=== PATIENT | female | born 1970 | race Caucasian/White ===

== ENCOUNTER → 2023-06-23 16:57 | Outpatient (REF) | payer SELFPAY | LOC: RAD 16:57 | PROVIDERS: ATTENDING PHYSICIAN Family Medicine | DX: Z78.0 Asymptomatic menopausal state (principal); M81.0 Age-related osteoporosis without current pathological fracture | CPT/HCPCS: 75571 ==

== ENCOUNTER 2023-10-30 13:06 | Outpatient (RCR) | payer BC, SELFPAY | END 2023-10-30 23:59 | disposition home or self-care (01) | LOC: RPT 13:06 | PROVIDERS: ATTENDING PHYSICIAN Nurse Practitioner Family | DX: M79.601 Pain in right arm (principal); Z73.6 Limitation of activities due to disability; M25.511 Pain in right shoulder; R20.2 Paresthesia of skin | CPT/HCPCS: 97110; 97162 ==

== ENCOUNTER 2023-12-04 13:20 | Outpatient (RCR) | payer BC, SELFPAY | END 2023-12-04 23:59 | disposition home or self-care (01) | LOC: RPT 13:20 | PROVIDERS: ATTENDING PHYSICIAN Nurse Practitioner Family | DX: M79.601 Pain in right arm (principal) | CPT/HCPCS: 97110; 97140 ==

== ENCOUNTER 2024-12-14 20:32 | Emergency (ER) | payer BC, SELFPAY ==
[2024-12-14 20:33] VITALS: BP 125/74
[2024-12-14 21:02] LABS: Blood Urea Nitrogen 12 mg/dl (7-17); Calcium 9.7 mg/dl (8.4-10.2); Carbon Dioxide 24 mmol/L (22-30); Chloride 106 mmol/L (98-107); Glucose 104 mg/dl (70-99); Sodium 140 mmol/L (135-145); eGFR > 60.00
[2024-12-14 21:12] LABS: Hematocrit 41.0 % (37.0-47.0); Hemoglobin 13.7 g/dL (12.0-16.0); Mean Corp Hgb Conc. 33.4 g/dL (33.0-37.0); Mean Corpuscular Volume 90.3 fL (81.0-99.0); Nucleated Red Blood Cells % 0 %; Red Cell Dist. Width 12.9 % (11.5-14.5)
[2024-12-14 21:24] VITALS: BMI 26.0
[2024-12-14 21:29] VITALS: BP 108/66
[2024-12-14 22:00] VITALS: BP 104/70
--- NOTE | 2024-12-14 22:24 | ED.GENMED ---
History of Present Illness
General
Chief Complaint: Headache
Time Seen by Provider: 12/14/24 22:10
History of Present Illness
History of Present Illness:
See MDM
Past History
Past History
ED Past Medical History: None
ED Past Surgical History: None
Social History
Tobacco: Non-smoker
Alcohol: None
Drug: None
Living: with family
Employment: Employed
Phy Exam
Physical Exam
Physical Exam:
See MDM
Course
Orders/Labs/Results
Orders:
Orders
12/14/24 20:41
Basic Metabolic Panel Urgent
Complete Blood Count/With Diff Urgent
12/14/24 22:24
Butalb/Acetaminophen/Caffeine [Fioricet] 1 tab PO NOW STA
Abnormal Lab Results
12/14/24
20:41
Absolute Neuts (auto) 7.0 H 10^3/uL
(1.4-6.5)
Absolute Monos (auto) 0.7 H 10^3/uL
(0.1-0.6)
Lymphocytes % 16.6 L %
(20.5-51.1)
Glucose 104 H mg/dl
(70-99)
12/14/24 20:41
12/14/24 20:41
Vital Signs
Initial and Last Documented VS:
Initial Vital Signs
Temp Pulse Resp BP Pulse Ox
97.6 F 107 16 125/74 97
12/14/24 20:33 12/14/24 20:33 12/14/24 20:33 12/14/24 20:33 12/14/24 20:33
Last Documented Vital Signs
Temp Pulse Resp BP Pulse Ox
97.6 F 78 18 104/70 98
12/14/24 20:33 12/14/24 22:00 12/14/24 22:00 12/14/24 22:00 12/14/24 22:26
MDM/Problems Addressed
Differential Diagnosis Includes:
Note:
CHIEF COMPLAINT(S)
Headache
HISTORY OF PRESENT ILLNESS
The patient is a 54-year-old female who presented with a chief complaint of a headache. She reports that sometimes she experiences migraine-like headaches, which can be localized on either the left or right side of the head. She describes the pain
as severe and mentions that her worst headache occurred on Friday, lasting into the evening. The patient states that nothing seems to significantly relieve the pain. She has been taking acetaminophen at a dose of 500 mg.
The patient expressed concern about potential serious causes, such as a brain bleed, although she has been reassured that her symptoms are suggestive of a primary headache rather than a secondary one. She experienced neck pain and muscle tension in
her back, possibly due to prolonged lying down for two and a half days. The onset of her headache was somewhat gradual.
The patient did not express any symptoms suggesting a thunderclap headache or other alarming signs such as changes in speech or motor function. On prior visits, a CT scan of the head was performed, which was normal, and recent blood work showed
normal results.
ALLERGIES
The patient is allergic to shellfish and fish.
PHYSICAL EXAM
General: Alert, no acute distress.
Skin: Warm, dry.
Head: Normocephalic, atraumatic. No tenderness to palpation of temporal artery
Neck: Appears supple, trachea midline. No meningismus
Eyes, Ears, Nose, Mouth, and Throat: Oral mucosa moist. Pupils equal reactive. EOMI
Cardiovascular: No signs of cyanosis
Respiratory: Respirations are non-labored.
Abdomen: Non-distended
Musculoskeletal: No deformities
Neurological: No focal neurological deficit observed.
Psychiatric: Cooperative, appropriate mood and affect.
PROBLEM LIST
Acute:
- Headache (suspected primary headache)
- Neck and back muscle discomfort
PLAN
The patient was offered two treatment options: IV medications (Toradol and Reglan with Benadryl) or an oral migraine treatment (Fioricet). The patient decided to start with the oral treatment to assess its efficacy. She was reassured that there were
no current concerns for a more serious condition like a brain bleed given her history, the absence of alarming symptoms, and prior imaging results.
DIFFERENTIAL DIAGNOSIS
The Differential Diagnosis includes, in no particular order and is not limited to:
1. Migraine headache
2. Tension-type headache
3. Cervicogenic headache
4. Cluster headache
5. Medication overuse headache
6. Sinus headache
7. Hypertension-related headache
8. Occipital neuralgia
9. Temporomandibular joint disorder
10. Viral illness-related headache
SUMMARY OF ENCOUNTER
The patient, a 54-year-old female, was seen in the emergency department for complaints of severe headaches resembling migraines, often localized to one side of the head. The headaches are persistent, with the most severe having occurred on a recent
Friday. After observation and trial therapy with Fioricet (butalbital/acetaminophen/caffeine), the patient experienced relief from symptoms. Given prior imaging showing no acute distress and the absence of alarming symptoms, her visit was treated as
a primary headache episode. Management involved testing the efficacy of oral Fioricet in relieving her symptoms and assessing her comfort with discharge.
DISPOSITION
Discharge
ASSESSMENT
The patient presents with a suspected primary headache, likely of migraine origin but without evidence suggesting a more serious underlying condition.
PLAN
The patient will continue with Fioricet on an as-needed basis to manage future occurrences of her headache. She was advised to follow up with her primary care physician and was counseled on return precautions should symptoms worsen or new symptoms
develop.
PATIENT EDUCATION AND COUNSELING
The patient was educated on the nature of her headaches and the signs that would warrant a return to the emergency department, such as sudden or severe headache, changes in vision, speech, or coordination, or any new or worsening symptoms.
FOLLOW-UP INSTRUCTIONS
The patient will follow up with her primary care doctor to further manage her headaches.
MEDICATION RECONCILIATION
A prescription for Fioricet (butalbital/acetaminophen/caffeine) was provided to the patient to use as needed for headache management.
MEDICAL DECISION MAKING
-Complexity of Data Reviewed: Chronic conditions affecting care include the suspected primary headache, with potential differential diagnoses such as migraine headache, tension-type headache, cervicogenic headache, and cluster headache.
-Data:
Category 1
My independent review of past imaging studies (prior head CT) showed normal results, which supports the management of her headaches as a primary condition rather than secondary to an acute medical issue.
-Risk: Prescription medication was prescribed as Fioricet for controlling headache symptoms on an as-needed basis.
Consideration of Admission/Observation: Escalation of care including admission/observation was considered given the complexity and risk of the patients presenting complaint, exam findings, and/or their underlying comorbidities. However, ultimately I
feel the patient is safe for outpatient management with close follow-up. Reasoning: Work-up reassuring, does not reveal any acute life/organ threatening processes, patients symptoms well controlled upon reevaluation, reexamination is reassuring,
vitals are stable, patient agreeable with discharge, reliable for follow-up.
DIAGNOSIS
1. Migraine headache, unspecified, not intractable, without status migrainosus (G43.009)
*Pulse Oximetry
SaO2: 98
Oxygen Mode of Delivery: Room air
Patient hypoxic: no
*Critical Care Note
Total Time (30-74mins, 75-104mins- exclusive of procedures): Not Applicable
ED Attending Note
-
Portions of this chart may have been created with voice recognition software.� Occasional wrong word or��sound alike� substitutions may have occurred due to the inherent limitations of voice recognition software.
Discharge Plan
Departure
Patient Disposition: Home (Routine Discharge)
Date of Disposition: 12/14/24
Time of Disposition: 23:22
Patient with high blood pressure during this ER visit?: No
Discharge Problem:
Headache
Instructions: Headache, Adult (DC)
Prescriptions:
New
hxnxoslkqf-rxdfkyzexfbxv-oedk [Fioricet] 50-300-40 mg capsule
1 cap PO TID PRN (Reason: Headache) Qty: 14 0RF
No Action
nortriptyline 10 MG capsule
10 mg PO QPM
promethazine 25 mg suppository
25 mg [place] Q6H PRN (Reason: nausea and vomiting) Qty: 12 0RF
estradiol 0.0375 mg/24 hr Patch Semiweekly
1 patch TRANSDERMAL ONCE
Referrals:
Shira Fuentes CRNP [Family Provider, Internal Medicine]
Activity Restrictions/Additional Instructions:
Please return for any worsening symptoms.
You may return at any time if you have further concerns.
Please follow up with your doctor at the first available appointment, preferably this week.
Thank you for choosing [facility].
Interventions
Interventions:
*Risk Screen - Suicide Last Done: 12/14/24 20:35
*General Assessment Last Done: 12/14/24 21:23
*Neglect/Abuse Screening Last Done: 12/14/24 20:35
*ED- Fall Risk Assessment Last Done: 12/14/24 21:23
*ED COVID-19 Vaccine History Last Done: 12/14/24 21:23
ED- Neurological Assessment Last Done: 12/14/24 21:37
Discharge Date and Time
Print Language: WELSH
[2024-12-14] MEDS: FIORICET 1 TAB PO (22:31)
[2024-12-14 23:00] VITALS: BP 110/75
== END 2024-12-14 23:38 | disposition home or self-care (01) ==
LOC: EMR 20:32
PROVIDERS: Emergency Medicine; EMERGENCY PHYSICIAN Student in an Organized Health Care Education/Training Program; FAMILY PHYSICIAN Family Medicine
DX: G43.909 Migraine, unspecified, not intractable, without status migrainosus (principal); M54.2 Cervicalgia; Z88.2 Allergy status to sulfonamides; Z91.013 Allergy to seafood
CPT/HCPCS: 99283; 80048; 85025

== ENCOUNTER 2024-12-20 07:33 | Emergency (ER) | payer BC, SELFPAY ==
[2024-12-20 07:36] VITALS: BP 116/71
[2024-12-20 08:36] VITALS: BMI 26.2
--- NOTE | 2024-12-20 08:38 | ED.GENMED ---
History of Present Illness
<Marla Ndiaye DO, Resident - Last Filed: 12/20/24 10:01>
General
Chief Complaint: Skin Problem
Source: patient
Time Seen by Provider: 12/20/24 08:23
History of Present Illness
History of Present Illness:
Patient is a 54-year-old female with no pertinent past medical history presenting with pruritic skin lesion, fevers nausea diarrhea. Last week patient presented to the [facility], and while she was here she thinks she was bit by a mosquito.
Patient first noticed an itchy red lesion on her right cheek/preauricular on Friday. The lesion began to grow and become a pustule. Patient went to urgent care on Friday and received a Keflex prescription. Since then patient feels that the red
bumps have traveled down her face towards her mouth, and are associated with swollen lymph nodes in her neck and underarm on her right side. Patient also notes a new pustule on the right side of her neck. Patient also notes on and off low-grade
fevers, chills and sweating, nausea and diarrhea since last week. Patient feels like her nausea and diarrhea has been worsened by the Keflex.
Past History
<Marla Ndiaye DO, Resident - Last Filed: 12/20/24 10:01>
Past History
ED Past Medical History: None
ED Past Surgical History: None
Social History
Tobacco: Non-smoker
Alcohol: None
Drug: None
Living: with family
Employment: Employed
Review of Systems
<Marla Ndiaye DO, Resident - Last Filed: 12/20/24 10:01>
Review of Systems
Allergies reviewed?: Yes
All Other Systems: ROS reviewed and negative except as documented in HPI and ROS
Constitutional: Reports fever and chills
EENT: Reports other (Swelling on right side of throat)
Respiratory: Reports no symptoms
Cardiac: Reports no symptoms
ABD/GI: Reports nausea and diarrhea
: Reports no symptoms
Musculoskeletal: Reports no symptoms
Skin: Reports itching (Right side of face postural and skin changes)
Neurological: Reports dizzy
Endocrine: Reports no symptoms
Hematologic/Lymphatic: Reports no symptoms
Psychiatric: Reports no symptoms
Phy Exam
<Marla Ndiaye DO, Resident - Last Filed: 12/20/24 10:01>
General Physical Exam
General Presentation: well appearing and no apparent distress
General age: appears stated age
General Skin: warm and dry
General Habitus: normal
Cardiovascular Exam
Cardiovascular Exam: tachycardia
Heart Sounds: normal
Pulmonary Exam
Pulmonary Exam: lungs clear
Gastrointestinal Exam
Gastrointestinal Exam: normal bowel sounds, non tender and soft
Neurological Exam
Neurological Exam: alert and oriented x3
Skin Exam
Skin Exam: other (1 red pustule noted on right face, preauricular cheek. 1 red pustule noted on right neck.)
Course
<Marla Ndiaye DO, Resident - Last Filed: 12/20/24 10:01>
Orders/Labs/Results
Orders:
Orders
12/20/24 09:08
Doxycycline [Vibramycin] 100 mg PO NOW STA
Vital Signs
Initial and Last Documented VS:
Initial Vital Signs
Temp Pulse Resp BP Pulse Ox
98.3 F 84 18 116/71 100
12/20/24 07:36 12/20/24 07:36 12/20/24 07:36 12/20/24 07:36 12/20/24 07:36
Last Documented Vital Signs
Temp Pulse Resp BP Pulse Ox
98.6 F 71 20 122/84 95
12/20/24 08:51 12/20/24 08:51 12/20/24 08:51 12/20/24 09:00 12/20/24 09:30
<Brenda Miles DO - Last Filed: 12/20/24 09:12>
Orders/Labs/Results
Orders:
Orders
12/20/24 09:08
Doxycycline [Vibramycin] 100 mg PO NOW STA
Vital Signs
Initial and Last Documented VS:
Initial Vital Signs
Temp Pulse Resp BP Pulse Ox
98.3 F 84 18 116/71 100
12/20/24 07:36 12/20/24 07:36 12/20/24 07:36 12/20/24 07:36 12/20/24 07:36
Last Documented Vital Signs
Temp Pulse Resp BP Pulse Ox
98.6 F 71 20 122/84 95
12/20/24 08:51 12/20/24 08:51 12/20/24 08:51 12/20/24 09:00 12/20/24 09:30
<Marla Ndiaye DO, Resident - Last Filed: 12/20/24 10:01>
MDM/Problems Addressed
Differential Diagnosis Includes:
local skin infection
MDM/Problems Addressed:
Will discharge patient to home with doxycycline 100mg BID prescription. Patient is nontoxic and appropriate for outpatient follow-up and management. Patient advised to return to ED if facial swelling worsens or if patient notes any trouble
swallowing.
<Marla Ndiaye DO, Resident - Last Filed: 12/20/24 10:01>
*Pulse Oximetry
SaO2: 100
Oxygen Mode of Delivery: Room air
Patient hypoxic: no
*Critical Care Note
Total Time (30-74mins, 75-104mins- exclusive of procedures): Not Applicable
ED Attending Note
<Marla Ndiaye DO, Resident - Last Filed: 12/20/24 10:01>
-
Portions of this chart may have been created with voice recognition software.� Occasional wrong word or��sound alike� substitutions may have occurred due to the inherent limitations of voice recognition software.
<Brenda Miles, DO - Last Filed: 12/20/24 09:12>
ED Attending Note
Patient seen and examined by attending physician: Yes
I performed the substantive portion of visit, reviewed & personally made and approve the management plan that is documented in note by myself or SUJEY.: Yes
I performed a history and physical exam of patient and discussed management with resident, I reviewed resident's note and agree with documented findings and plan of care.: Yes
ED Attending Note:
54-year-old female presenting to the emergency department for concern of skin infection. Patient reports about a week ago she felt like she may have been bit by something on the right side of her cheek. She has since developed a pustule. She went
to urgent care 2 days ago, with Keflex, however feels like it is getting worse and now sees a pustule on her neck and some erythema beside her nose. Also notes some nausea. Denies fever. Denies known sick contacts. Denies difficulty breathing or
issues with swallowing. Vital signs are normal.
On exam, patient is resting comfortably, no acute distress, nontoxic. On examination of the face, small pustule at the right side of the face near the ear. Some swelling to the lymph node and next to the pustule with additional pustule at the
right side of the neck. Mild erythema to the right side of the nose. No fluctuance palpation. No significant induration. No oral phalangeal swelling or exudates. Suspect mild skin infection. Given location of the bleed, MRSA is a consideration
so we will switch patient's antibiotics to doxycycline. Lower suspicion for Lyme given appearance of rash. Otherwise patient is nontoxic and appropriate for outpatient follow-up and management. Return precautions discussed.
Discharge Plan
Departure
Patient Disposition: Home (Routine Discharge)
Date of Disposition: 12/20/24
Time of Disposition: 09:34
Patient with high blood pressure during this ER visit?: No
Discharge Problem:
Skin infection
Instructions: Cellulitis (Skin Infection), Adult (DC)
Prescriptions:
New
doxycycline hyclate 100 mg capsule
100 mg PO BID Qty: 14 0RF
No Action
nortriptyline 10 MG capsule
10 mg PO QPM
promethazine 25 mg suppository
25 mg [place] Q6H PRN (Reason: nausea and vomiting) Qty: 12 0RF
estradiol 0.0375 mg/24 hr Patch Semiweekly
1 patch TRANSDERMAL ONCE
xnniwfrmpf-ogxfwmnxaierw-gqfm [Fioricet] 50-300-40 mg capsule
1 cap PO TID PRN (Reason: Headache) Qty: 14 0RF
Referrals:
Fanny Prince MD [Family Provider, Family Practice]
Activity Restrictions/Additional Instructions:
Please take doxycycline 100 mg tablet by mouth twice daily with food. Please return to ED if swelling of face and neck worsens, or if you note difficulties with swallowing.
Interventions
Interventions:
*Risk Screen - Suicide Last Done: 12/20/24 07:36
*General Assessment Last Done: 12/20/24 07:36
*Neglect/Abuse Screening Last Done: 12/20/24 07:36
*ED- Fall Risk Assessment Last Done: 12/20/24 08:51
*ED COVID-19 Vaccine History Last Done: 12/20/24 08:51
*Nursing Disposition Last Done: 12/20/24 09:46
ED-Skin Assessment Last Done: 12/20/24 08:51
Discharge Date and Time
Discharge Date/Time: 12/20/24 09:49
Print Language: BELARUSIAN
[2024-12-20 08:51] VITALS: BP 117/62
[2024-12-20 09:00] VITALS: BP 122/84
== END 2024-12-20 09:49 | disposition home or self-care (01) ==
LOC: EMR 07:33
PROVIDERS: EMERGENCY PHYSICIAN Student in an Organized Health Care Education/Training Program; FAMILY PHYSICIAN Family Medicine
DX: L08.9 Local infection of the skin and subcutaneous tissue, unspecified (principal)
CPT/HCPCS: 99283

== ENCOUNTER → 2025-02-23 12:39 | Outpatient (REF) | payer BC, SELFPAY | LOC: EMG 12:39 | PROVIDERS: ATTENDING PHYSICIAN Nurse Practitioner Adult Health; FAMILY PHYSICIAN Family Medicine | DX: R20.0 Anesthesia of skin (principal); M25.511 Pain in right shoulder | CPT/HCPCS: 73030; 95886; 95909 ==

== ENCOUNTER 2025-02-26 12:07 | Emergency (ER) | payer BC, SELFPAY ==
[2025-02-26 12:16] VITALS: BP 112/64
--- NOTE | 2025-02-26 13:44 | ED.MUSCINJ ---
HPI-Injury
General
Chief Complaint: Fall
Source: patient
Exam Limitations: none
Time Seen by Provider: 02/26/25 13:36
Nursing documentation reviewed up to this point in time: agreed with
History of Present Illness-Injury
Initial Injury comments:
54-year-old female is here for persistent right shoulder and elbow pain after a fall a week ago when she was evaluated here and had a negative right shoulder x-ray. She states the pain is 'unrelenting, getting worse' and she has trouble sleeping at
night due to the pain. She took a Tylenol/ibuprofen pill at 1 yesterday and that is all she has taken for pain. She states she does not like to take medications. She has made an appointment with her own orthopedic doctor for 6 days from now. She
is right handed, denies overuse of injured arm.
Past History
Past History
ED Past Medical History: Other (IBS on Nortriptyline 'for my stomach')
ED Past Surgical History: None
Social History
Tobacco: Non-smoker
Alcohol: None
Drug: None
Personal:
Living: with family
Employment: Employed
Review of Systems
Review of Systems
Allergies reviewed?: Yes
All Other Systems: ROS reviewed and negative except as documented in HPI and ROS
Musculoskeletal Injury Exam
Musculoskeletal Injury Exam
Right Shoulder:
Pain with Movement?: Moderate
Tender to palpation?: Moderate (Posterior aspect of the shoulder over Glenohumeral joint)
Soft tissue swelling?: None
External deformity and angulation?: None
Strain- Sprain- Tear (Connective tissue injury)?: Moderate
Joint instability?: No
Malalignment/deformity?: No
Range of motion: Limited (mildly limited to adduction and posterior extension, can easily lift arm to 90 degrees before too painful to go further.)
Distal skin color and temperature: normal-warm & good color
Capillary Refill: normal
Normal distal neurovascular exam?: Yes
Right Elbow:
Pain with Movement?: Mild (able to pronate and supinate without pain, mild tenderness to ST of upper arm and forearm, No bony tenderness )
Tender to palpation?: Mild
Soft tissue swelling?: None
Strain- Sprain- Tear (Connective tissue injury)?: Other (radicular pain from shoulder most likely)
Range of motion: Full
Distal skin color and temperature: normal-warm & good color
Capillary Refill: normal
Normal distal neurovascular exam?: Yes
Phy Exam
Physical Exam
Physical Exam:
PHYSICAL EXAMINATION:
General: no apparent distress, not acutely ill
Neuro: alert and oriented.
Psychiatric: well kept. interactive and cooperative
Musculoskeletal: Moves with ease
Skin: Warm, pink.
Injury Course
Orders/Labs/Results
Orders:
Orders
02/26/25 13:48
Elbow, 3 View, Right [CR Elbow - Right Min 3 Views] Urgent
Comment:
Reason For Exam: pain after fall
MDM/Problems Addressed
MDM/Problems Addressed:
54-year-old female is here for persistent right shoulder and elbow pain after a fall a week ago when she was evaluated here and had a negative right shoulder x-ray. She states the pain is 'unrelenting, getting worse' and she has trouble sleeping at
night due to the pain. She took a Tylenol/ibuprofen pill at 1 yesterday and that is all she has taken for pain. She states she does not like to take medications. She has made an appointment with her own orthopedic doctor for 6 days from now. She
is right handed, denies overuse of injured arm.
Xray from last week reviewed, no abnormality noted.
No bony tenderness to elbow, full ROM, no swelling, distal n/v intact, no indication for imaging as this is radicular pain.
Patient has been appointment with her own orthopedic doctor for 6 days from now.
Offered muscle relaxant but she does not want to take any other medication besides ibuprofen/Tylenol
*Pulse Oximetry
SaO2: 98
Oxygen Mode of Delivery: Room air
Patient hypoxic: not evaluated
*Critical Care Note
Total Time (30-74mins, 75-104mins- exclusive of procedures): Not Applicable
ED Attending Note
-
Portions of this chart may have been created with voice recognition software.� Occasional wrong word or��sound alike� substitutions may have occurred due to the inherent limitations of voice recognition software.
Discharge Plan
Departure
Patient Disposition: Home (Routine Discharge)
Date of Disposition: 02/26/25
Time of Disposition: 14:11
Patient with high blood pressure during this ER visit?: No
Condition: Good
Discharge Problem:
Injury of right shoulder, Acute pain of right shoulder due to trauma, Pain in right elbow, Fall from slip, trip, or stumble
Instructions: Rotator cuff injury, Shoulder Sprain ED
Prescriptions:
No Action
nortriptyline 10 MG capsule
10 mg PO QPM
promethazine 25 mg suppository
25 mg [place] Q6H PRN (Reason: nausea and vomiting) Qty: 12 0RF
estradiol 0.0375 mg/24 hr Patch Semiweekly
1 patch TRANSDERMAL ONCE
utwashpwgl-nqcuwrfckyrkb-rkwf [Fioricet] 50-300-40 mg capsule
1 cap PO TID PRN (Reason: Headache) Qty: 14 0RF
doxycycline hyclate 100 mg capsule
100 mg PO BID Qty: 14 0RF
Activity Restrictions/Additional Instructions:
As we discussed, I reviewed your shoulder and your elbow x-ray and saw no acute abnormalities.
You may have damaged/torn a cartilage or muscle in the shoulder area, something we cannot see on plain x-ray.
Keep your appointments with your orthopedic doctor next week
Take your ibuprofen/Tylenol religiously 3 times a day for the next 5 days and see if it helps. Take it with food so it does not upset your stomach
Although not an official diagnosis at this time, I have provided you with information on rotator cuff injuries FYI
Interventions
Interventions:
*Risk Screen - Suicide Last Done: 02/26/25 12:16
*General Assessment Last Done: 02/26/25 12:16
*Neglect/Abuse Screening Last Done: 02/26/25 12:16
*ED COVID-19 Vaccine History Last Done: 02/26/25 12:16
*ED Influenza Vaccine History Last Done: 02/26/25 12:16
*Nursing Disposition Last Done: 02/26/25 14:23
ED-Musculoskeletal Assessment Last Done: 02/26/25 13:28
ED-Skin Assessment Last Done: 02/26/25 13:28
Discharge Date and Time
Discharge Date/Time: 02/26/25 14:25
Print Language: TAJIK
== END 2025-02-26 14:25 | disposition home or self-care (01) ==
LOC: EMR 12:07
PROVIDERS: EMERGENCY PHYSICIAN Emergency Medicine; FAMILY PHYSICIAN Family Medicine
DX: S49.91XA Unspecified injury of right shoulder and upper arm, initial encounter (principal); M25.521 Pain in right elbow; W01.0XXA Fall on same level from slipping, tripping and stumbling without subsequent striking against object, initial encounter; K58.9 Irritable bowel syndrome, unspecified
CPT/HCPCS: 99283; 73080

== ENCOUNTER → 2025-03-03 20:49 | Outpatient (REF) | payer BC, SELFPAY | LOC: PAVMRI 20:49 | PROVIDERS: ATTENDING PHYSICIAN Student in an Organized Health Care Education/Training Program; FAMILY PHYSICIAN Family Medicine | DX: M54.12 Radiculopathy, cervical region (principal) | CPT/HCPCS: 72141 ==